=== PATIENT | female | born 1995 | race Caucasian/White ===

== ENCOUNTER 2017-04-30 22:59 | Outpatient (CLI) | payer OTHER ==
[2017-05-24] MEDS ORDERED: NORCO 5-325 TA1 EACH PO (14:06)
== END 2017-05-01 02:27 | disposition home or self-care (01) ==
LOC: GENOP 22:59
DX: O99.89 Other specified diseases and conditions complicating pregnancy, childbirth and the puerperium (principal); R10.9 Unspecified abdominal pain; Z3A.36 36 weeks gestation of pregnancy
CPT/HCPCS: 81001; G0463

== ENCOUNTER 2021-03-13 22:53 | Outpatient (CLI) | payer OTHER ==
[~2021-03-13 22:53] MED LIST: COLACE 100MG C100 MG PO; FEOSOL325 MG PO; IBUPROFEN600 MG PO; LORTAB 5-325 M1 EACH PO; NORCO 5-325 TA1 EACH PO
== END 2021-03-14 00:37 | disposition home or self-care (01) ==
LOC: GENOP 22:53
DX: O62.8 Other abnormalities of forces of labor (principal); Z3A.38 38 weeks gestation of pregnancy
CPT/HCPCS: 59025

== ENCOUNTER 2021-03-22 12:08 | Inpatient (IN) | payer OTHER ==
[~2021-03-22] VITALS: Ht 170.2 cm; Wt 88.9 kg
[2021-03-22 12:48] LABS: HEMOGLOBIN 11.5 gm/dl (12.3-15.3); RED BLOOD COUNT 4.87 M/UL (4.00-5.10); WHITE BLOOD COUNT 16.4 K/UL (4.5-11.0)
[2021-03-22] MEDS ORDERED: PRILOSEC OTC20 MG PO (14:50)
[2021-03-22] MEDS ORDERED: HYDROCODON-ACE1 EAC4 PO (16:21)
[2021-03-22] MEDS ORDERED: IBUPROFEN600 MG PO (16:21)
[2021-03-22] MEDS ORDERED: DOCUSATE SODIU100 MG PO (16:21)
[2021-03-23 05:56] LABS: HEMOGLOBIN 9.4 gm/dl (12.3-15.3)
== END 2021-03-23 17:40 | disposition home or self-care (01) | DRG 807 ==
LOC: GENOP 12:08 → OB 17:08
PROVIDERS: ADMIT Obstetrics & Gynecology
PROC: 10E0XZZ Delivery of Products of Conception, External Approach (ICD-10-PCS; principal; 2021-03-22)
PROC: 0KQM0ZZ Repair Perineum Muscle, Open Approach (ICD-10-PCS; 2021-03-22)
PROC: 4A1HX4Z Monitoring of Products of Conception, Cardiac Electrical Activity, External Approach (ICD-10-PCS; 2021-03-22)
PROC: 10907ZC Drainage of Amniotic Fluid, Therapeutic from Products of Conception, Via Natural or Artificial Opening (ICD-10-PCS; 2021-03-22)
DX: O80 Encounter for full-term uncomplicated delivery (principal); Z37.0 Single live birth; Z3A.39 39 weeks gestation of pregnancy; F32.9 Major depressive disorder, single episode, unspecified; K21.9 Gastro-esophageal reflux disease without esophagitis; Z86.16 Personal history of COVID-19; O70.1 Second degree perineal laceration during delivery; Z20.822 Contact with and (suspected) exposure to COVID-19
CPT/HCPCS: 36415; 81001; 82800; 85014; 85018; 85025; 86900; 86901; J2590; J3010; J7120; U0002